=== PATIENT | female | born 1990 | race Caucasian/White ===

== ENCOUNTER 2016-06-27 22:22 | Inpatient (IN) | payer OTHER ==
[2016-06-27] MEDS ORDERED: Nalbuphine 20 MG/1 ML Amp IVPUSH PRN (23:17)
[2016-06-27] MEDS ORDERED: Ondansetron 4 MG/2 ML SDV IVPUSH PRN (23:17)
[2016-06-27] MEDS ORDERED: Sodium Chloride 0.9% 10 ML Syringe FLUSH PRN (23:17)
[2016-06-27] MEDS ORDERED: Lidocaine 1% 50 ML MDV INJECT PRN (23:17)
[2016-06-27] MEDS ORDERED: Oxytocin/Lactated Ringers 10 UNIT/1,000 ML BAG IV SCH (23:30)
[2016-06-27] MEDS ORDERED: Lactated Ringers 1,000 ML IV SCH (23:30)
--- NOTE | 2016-06-28 00:54 | PCM.LDHP ---
L&D History of Present Illness - General Date of Service: 06/28/16 Admit Problem/Dx: Patient Status Order with Admit Dx/Problem 06/27/16 23:17 Patient Status [ADT] Routine Admission Diagnosis/Problem Admission Diagnosis/Problem Source of Information: Patient History Limitations: Reports: No Limitations - History of Present Illness Introduction:: 25 year old at 39w4 here in active labor. Contractions started mildly at 11am and got very strong at 9pm. Good movement. No loss of fluid. - Related Data Allergies/Adverse Reactions: Allergies Allergy/AdvReac Type Severity Reaction Status Date / Time No Known Allergies Allergy Verified 06/27/16 23:17 Past Medical History Psychiatric History: Reports: ADD Dermatologic History: Reports: Eczema Social & Family History - Family History Family Medical History: Noncontributory - Sexual History Sexual History: Reports: Sexually Active, Single Partner H&P Review of Systems - Review of Systems: Review Of Systems: See Below General: Reports: No Symptoms HEENT: Reports: No Symptoms Pulmonary: Reports: No Symptoms Cardiovascular: Reports: No Symptoms Gastrointestinal: Reports: No Symptoms Genitourinary: Reports: No Symptoms Musculoskeletal: Reports: No Symptoms Skin: Reports: No Symptoms Psychiatric: Reports: No Symptoms Neurological: Reports: No Symptoms Hematologic/Lymphatic: Reports: No Symptoms Immunologic: Reports: No Symptoms L&D Exam - Exam Exam: See Below - Vital Signs Weight: 84.504 kg - OB Specific Contraction Intensity: Moderate Heart Rate (FHR) Variability: Moderate (6-25 bmp) Presentation: Vertex - Reid Score Reid Score Cervix Position: Midposition Reid Score Consistency: Soft Reid Score Effacement: 51-70% Reid Score Dilation: > 5 cm Reid Score 's Station: -1 ,0 Reid Score Total: 10 - Exam General: Alert, Oriented HEENT: Conjunctiva Clear Neck: Supple Lungs: Clear to Auscultation Cardiovascular: Regular Rate Genitourinary: Normal external exam Back Exam: Normal Inspection, Full Range of Motion Psychiatric: Alert, Normal Affect, Normal Mood - Patient Data Lab Results last 24 hrs: Laboratory Results - last 24 hr 06/27/16 Range/Units 23:15 WBC 10.51 H (3.98-10.04) K/mm3 RBC 4.66 (3.98-5.22) M/mm3 Hgb 13.4 (11.2-15.7) gm/L Hct 39.1 (34.1-44.9) % MCV 83.9 (79.4-94.8) fl MCH 28.8 (25.6-32.2) pg MCHC 34.3 (32.2-35.5) g/dl RDW Std Deviation 41.4 (36.4-46.3) fL Plt Count 241 (182-369) K/mm3 MPV 10.7 (9.4-12.3) fl Result Diagrams: 06/27/16 23:15 Problem List Initiated/Reviewed/Updated: Yes Orders Last 24hrs: Active Orders 24 hr Category Date Time Status Patient Status Manage Transfer [TRANSFER] Routine ADT 06/28/16 00:43 Active Patient Status [ADT] Routine ADT 06/27/16 23:17 Active Activity as Tolerated [RC] PFP Care 06/27/16 23:17 Active Communication Order [RC] ASDIRECTED Care 06/27/16 23:17 Active Heart Tones [RC] ASDIRECTED Care 06/27/16 23:18 Active Notify Provider [RC] PFP Care 06/27/16 23:17 Active Notify Provider [RC] PRN Care 06/27/16 23:17 Active Peripheral IV Care [RC] . DIRECTED Care 06/27/16 23:18 Active Vital Signs [RC] PER UNIT ROUTINE Care 06/27/16 23:17 Active Clear Liquid Diet [DIET] Diet 06/27/16 Breakfast Active Lactated Ringers [Ringers, Lactated] 1,000 ml Med 06/27/16 23:30 Active IV ASDIRECTED Lidocaine 1% [Xylocaine 1%] Med 06/27/16 23:17 Active 10 ml INJECT ONETIME PRN Nalbuphine [Nubain] Med 06/27/16 23:17 Active 10 mg IVPUSH Q2H PRN Ondansetron [Zofran] Med 06/27/16 23:17 Active 4 mg IVPUSH Q4H PRN Oxytocin/Lactated Ringers [Pitocin in LR 10 Units/1,000 Med 06/27/16 23:30 Active ML] 10 unit in 1,000 ml IV TITRATE Sodium Chloride 0.9% [Saline Flush] Med 06/27/16 23:17 Active 10 ml FLUSH ASDIRECTED PRN Electronic Heart Tones Ext w TOCO [WOMSER] Oth 06/27/16 23:17 Ordered Routine Electronic Heart Tones Internal [WOMSER] Per Unit Ot 06/27/16 23:17 Ordered Routine Peripheral IV Insertion Adult [OM.PC] Routine Oth 06/27/16 23:17 Ordered Resuscitation Status Routine Resus Stat 06/27/16 23:17 Ordered Medication Orders Lactated Ringer's (Ringers, Lactated) 1,000 mls @ 100 mls/hr IV ASDIRECTED LISANDRA Oxytocin/Lactated Ringer's (Pitocin In Lr 10 Units/1,000 Ml) 10 unit in 1,000 mls @ 500 mls/hr IV TITRATE LISANDRA Lidocaine HCl (Xylocaine 1%) 10 ml INJECT ONETIME PRN PRN Reason: Perineal Comfort Measure Nalbuphine HCl (Nubain) 10 mg IVPUSH Q2H PRN PRN Reason: Pain (moderate 4-6) Ondansetron HCl (Zofran) 4 mg IVPUSH Q4H PRN PRN Reason: Nausea/Vomiting Sodium Chloride (Saline Flush) 10 ml FLUSH ASDIRECTED PRN PRN Reason: Keep Vein Open Assessment/Plan Comment:: Note done after delivery as rapid . Assessment labor -Patient did agree to saline lock but refuses any medication including pitocin after placental delivery -Declines repair of laceration -Desires delayed cord clamping until done pulsating.
[2016-06-28] MEDS: Witch Hazel Medicated Pads 100/Jar TOP PRN (02:30)
[2016-06-28] MEDS ORDERED: Ibuprofen 600 MG Tab PO PRN (03:19)
[2016-06-28] MEDS ORDERED: Docusate Sodium 100 MG Cap PO PRN (03:19)
[2016-06-28] MEDS ORDERED: Lanolin 100% Cream 7 GM Tube TOP PRN (03:19)
[2016-06-28] MEDS ORDERED: Benzocaine/Menthol 20%-0.5% Spray 56 GM Canister TOP PRN (04:02)
--- NOTE | 2016-06-29 08:59 | PCM.PNPP ---
- General Info Date of Service: 06/29/16 Functional Status: Reports: pain controlled - Review of Systems General: Reports: No Symptoms HEENT: Reports: no symptoms Pulmonary: Reports: no symptoms Cardiovascular: Reports: No Symptoms Gastrointestinal: Reports: No symptoms Genitourinary: Reports: no symptoms Musculoskeletal: Reports: no symptoms Skin: Reports: no symptoms Neurological: Reports: No Symptoms Psychiatric: Reports: no symptoms - General Info Date of Service: 06/29/16 - Patient Data Vital Signs - most recent: Last Vital Signs Temp 36.8 C 06/29/16 02:51 Pulse 63 06/29/16 02:51 Resp 16 06/29/16 02:51 BP 112/78 06/29/16 03:00 Pulse Ox 96 06/29/16 02:51 Weight - most recent: 84.504 kg I&O - last 24 hours: Intake & Output 06/28/16 06/29/16 06/29/16 22:59 06:59 14:59 Intake Total 120 Balance 120 Med Orders - Current: Current Medications Benzocaine/Menthol (Dermoplast Pain Relief [place]) 56 gm TOP ASDIRECTED PRN PRN Reason: Perineal Comfort Measure Last Admin: 06/28/16 03:00 Dose: 1 canister Docusate Sodium (Colace) 100 mg PO BID PRN PRN Reason: Constipation Emollient Ointment (Lansinoh Hpa) 0 gm TOP ASDIRECTED PRN PRN Reason: Sore Nipples Ibuprofen (Motrin) 600 mg PO Q6H PRN PRN Reason: Mild pain or fever Witch Yajaira (Tucks) 1 pad TOP ASDIRECTED PRN PRN Reason: Hemorrhoid pain Last Admin: 06/28/16 02:30 Dose: 1 container Discontinued Medications Lactated Ringer's (Ringers, Lactated) 1,000 mls @ 100 mls/hr IV ASDIRECTED LISANDRA Oxytocin/Lactated Ringer's (Pitocin In Lr 10 Units/1,000 Ml) 10 unit in 1,000 mls @ 500 mls/hr IV TITRATE LISANDRA Lidocaine HCl (Xylocaine 1%) 10 ml INJECT ONETIME PRN PRN Reason: Perineal Comfort Measure Nalbuphine HCl (Nubain) 10 mg IVPUSH Q2H PRN PRN Reason: Pain (moderate 4-6) Ondansetron HCl (Zofran) 4 mg IVPUSH Q4H PRN PRN Reason: Nausea/Vomiting Sodium Chloride (Saline Flush) 10 ml FLUSH ASDIRECTED PRN PRN Reason: Keep Vein Open - Interaction Disposition, : to Nursery Support Person: Mother, Significant Other - Recovery Exam Fundal Tone: Firm Fundal Level: 1 Fingerbreadths Below Umbilicus Fundal Placement: Midline Lochia Amount: Small Lochia Color: Rubra/Red Perineum Description: Other (see below) Other Perinuem Description: pt states it is sore down there Episiotomy/Laceration: Approximated Bladder Status: Voiding Urinary Elimination: Voided - Exam General: alert, oriented HEENT: Pupils equal Neck: supple Lungs: Clear to auscultation, Normal respiratory effort Cardiovascular: Regular Rate, Regular Rhythm Abdomen: bowel sounds present, soft, no tenderness, no distension Extremities: no edema Skin: warm, dry, intact Wound/Incisions: healing well Neurological: no new focal deficit Psy/Mental Status: alert, normal affect, normal mood - Problem List Review Problem List Initiated/Reviewed/Updated: Yes - My Orders Last 24 Hours: My Active Orders 06/29/16 03:19 Heat Therapy [OM.PC] PRN - Assessment Assessment:: Term delivery No issues Support pumping/ Plan discharge tomorrow Baby level 2 - Plan Plan:: Note done after delivery as rapid . Assessment labor -Patient did agree to saline lock but refuses any medication including pitocin after placental delivery -Declines repair of laceration -Desires delayed cord clamping until done pulsating.
[2016-06-29] MEDS ORDERED: Acetaminophen/oxyCODONE 325-5 MG Tab PO PRN (21:32)
--- NOTE | 2016-06-30 06:44 | PCM.DCSUM1 ---
Discharge Summary - Hospital Course Brief History: Admitted in active labor. Had . 1st degree laceration refused repair and right periuretral. Unremarkable course. - Discharge Data Discharge Date: 06/30/16 Discharge Disposition: Home, Self-Care 01 Condition: Good - Patient Instructions Diet: Usual Diet as Tolerated Activity: No Strenuous Activities Activity, Other: pelvic rest Driving: May Drive Today Notify Provider of: Fever, Increased Pain, Swelling and Redness, Drainage, Nausea and/or Vomiting - Discharge Plan Referrals: Michelle Varela MD [Physician] - - Discharge Summary/Plan Comment DC Time >30 min.: No - General Info Date of Service: 06/30/16 Functional Status: Reports: pain controlled - Review of Systems General: Reports: No Symptoms HEENT: Reports: no symptoms Pulmonary: Reports: no symptoms Cardiovascular: Reports: No Symptoms Gastrointestinal: Reports: No symptoms Genitourinary: Reports: no symptoms Musculoskeletal: Reports: no symptoms Skin: Reports: no symptoms Neurological: Reports: No Symptoms Psychiatric: Reports: no symptoms - Patient Data Vitals - Most Recent: Last Vital Signs Temp 36.4 C 06/30/16 05:58 Pulse 70 06/30/16 05:58 Resp 16 06/30/16 05:58 BP 118/71 06/30/16 05:58 Pulse Ox 92 L 06/30/16 05:58 Weight - Most Recent: 84.504 kg I&O - Last 24 hours: Intake & Output 06/29/16 06/29/16 06/30/16 14:59 22:59 06:59 Intake Total 0 Balance 0 Med Orders - Current: Current Medications Benzocaine/Menthol (Dermoplast Pain Relief [place]) 56 gm TOP ASDIRECTED PRN PRN Reason: Perineal Comfort Measure Last Admin: 06/28/16 03:00 Dose: 1 canister Docusate Sodium (Colace) 100 mg PO BID PRN PRN Reason: Constipation Emollient Ointment (Lansinoh Hpa) 0 gm TOP ASDIRECTED PRN PRN Reason: Sore Nipples Ibuprofen (Motrin) 600 mg PO Q6H PRN PRN Reason: Mild pain or fever Last Admin: 06/29/16 20:09 Dose: 600 mg Oxycodone/Acetaminophen (Percocet 325-5 Mg) 1 tab PO Q6H PRN PRN Reason: Pain Witch Yajaira (Tucks) 1 pad TOP ASDIRECTED PRN PRN Reason: Hemorrhoid pain Last Admin: 06/28/16 02:30 Dose: 1 container Discontinued Medications Lactated Ringer's (Ringers, Lactated) 1,000 mls @ 100 mls/hr IV ASDIRECTED LISANDRA Oxytocin/Lactated Ringer's (Pitocin In Lr 10 Units/1,000 Ml) 10 unit in 1,000 mls @ 500 mls/hr IV TITRATE LISANDRA Lidocaine HCl (Xylocaine 1%) 10 ml INJECT ONETIME PRN PRN Reason: Perineal Comfort Measure Nalbuphine HCl (Nubain) 10 mg IVPUSH Q2H PRN PRN Reason: Pain (moderate 4-6) Ondansetron HCl (Zofran) 4 mg IVPUSH Q4H PRN PRN Reason: Nausea/Vomiting Sodium Chloride (Saline Flush) 10 ml FLUSH ASDIRECTED PRN PRN Reason: Keep Vein Open - Exam General: Reports: alert, oriented HEENT: Reports: Pupils equal, Pupils reactive, EOMI, Mucous membr. moist/pink Neck: Reports: supple Lungs: Reports: Clear to auscultation, Normal respiratory effort Cardiovascular: Reports: Regular Rate, Regular Rhythm Abdomen: Reports: bowel sounds present, soft, no tenderness, no distension Back Exam: Reports: Normal Inspection, Full Range of Motion Extremities: Reports: no edema, normal pulses Skin: Reports: warm, dry, intact Wound/Incisions: Reports: healing well Neurological: Reports: no new focal deficit Psy/Mental Status: Reports: alert, normal affect, normal mood *Q Meaningful Use (DIS) - VTE *Q VTE Criteria *Q: - Stroke *Q Stroke Criteria *Q: - AMI *Q AMI Criteria *Q:
[2016-06-30 12:57] VITALS: BP 119/70
[2016-06-30] MEDS: Witch Hazel Medicated Pads 100/Jar TOP PRN (18:14)
== END 2016-06-30 18:33 | disposition home or self-care (01) | DRG 775 ==
LOC: JD.OBCHECK 22:22 → JD.OB 22:27 → JD.OBCHECK 23:17 → JD.MS 06-28 00:14 → OBSVTOIN 06-28 00:14 → JD.OB 06-28 11:34
PROVIDERS: ADMIT Obstetrics & Gynecology; ATTEND Obstetrics & Gynecology
PROC: 10E0XZZ Delivery of Products of Conception, External Approach (ICD-10-PCS; principal; 2016-06-28)
DX: O70.0 First degree perineal laceration during delivery (principal); Z3A.40 40 weeks gestation of pregnancy; Z37.0 Single live birth
CPT/HCPCS: 36415; 85027; A9270-GY